=== PATIENT | female | born 1965 | race Caucasian/White ===

== ENCOUNTER 2017-03-02 11:50 | Outpatient (CLI) | END 2017-03-02 11:51 | LOC: AMBL 11:50 | PROVIDERS: ATTEND Emergency Medicine | DX: R07.9 Chest pain, unspecified (principal); R00.0 Tachycardia, unspecified; I97.89 Other postprocedural complications and disorders of the circulatory system, not elsewhere classified; I49.3 Ventricular premature depolarization ==